=== PATIENT | female | born 1940 | race Caucasian/White ===

== ENCOUNTER 2016-05-01 14:39 | Inpatient (IN) | payer OTHER ==
[~2016-05-01] VITALS: Ht 154.9 cm; Wt 70.9 kg
[2016-05-01 16:32] LABS: RED BLOOD COUNT 4.66 M/UL (4.00-5.10); WHITE BLOOD COUNT 7.3 K/UL (4.5-11.0)
[2016-05-01 16:56] LABS: BUN/CREATININE RATIO 20 (0-10)
[2016-05-02 05:59] LABS: HEMOGLOBIN 14.4 gm/dl (12.3-15.3); RED BLOOD COUNT 4.55 M/UL (4.00-5.10); WHITE BLOOD COUNT 7.1 K/UL (4.5-11.0)
[2016-05-02 06:11] LABS: BUN/CREATININE RATIO 22 (0-10)
[2016-05-03] MEDS ORDERED: IBUPROFEN800 MG PO (09:54)
[2016-05-03] MEDS ORDERED: NEURONTIN 300300 MG PO (09:56)
[2016-05-03] MEDS ORDERED: FLOVENT DISKUS50 MCG INH (09:57)
[2016-05-03] MEDS ORDERED: CLARITIN 10MG T10 MG PO (09:59)
[2016-05-03] MEDS ORDERED: FLONASE 0.05% N16 GM (09:59)
[2016-05-03] MEDS ORDERED: ISOSORBIDE MONO30 MG PO (11:15)
[2016-05-03] MEDS ORDERED: COZAAR100 MG PO (11:15)
[2016-05-03] MEDS ORDERED: HYDROCHLOROTHIA25 MG PO (11:15)
[2016-05-03] MEDS ORDERED: OMEPRAZOLE20 MG PO (11:16)
[2016-05-03] MEDS ORDERED: LIPITOR40 MG PO (17:58)
[2016-05-03] MEDS ORDERED: ASPIR 8181 MG PO (17:58)
[2016-05-03] MEDS ORDERED: LEVAQUIN500 MG PO (17:58)
[2016-05-03] MEDS ORDERED: CLOPIDOGREL75 MG PO (17:59)
[2016-11-26] MEDS ORDERED: VENTOLIN HFA 66.7 GM INH (10:36)
== END 2016-05-03 18:27 | disposition home health service (06) | DRG 65 ==
LOC: ER1 14:39 → MED SURG 4 20:10 → ZEROF 20:10 → MED SURG 4 20:10
PROVIDERS: Family Medicine; ADMIT Internal Medicine
DX: I63.9 Cerebral infarction, unspecified (principal); G81.94 Hemiplegia, unspecified affecting left nondominant side; N30.00 Acute cystitis without hematuria; R29.701 NIHSS score 1; R40.2412 Glasgow coma scale score 13-15, at arrival to emergency department; B96.20 Unspecified Escherichia coli [E. coli] as the cause of diseases classified elsewhere; Z16.11 Resistance to penicillins; I10 Essential (primary) hypertension; E78.5 Hyperlipidemia, unspecified; M50.30 Other cervical disc degeneration, unspecified cervical region; Z86.73 Personal history of transient ischemic attack (TIA), and cerebral infarction without residual deficits; Z88.0 Allergy status to penicillin; Z88.2 Allergy status to sulfonamides; Z90.710 Acquired absence of both cervix and uterus; Z90.49 Acquired absence of other specified parts of digestive tract; Z98.890 Other specified postprocedural states; Z83.3 Family history of diabetes mellitus
CPT/HCPCS: ECHO; 36415; 70450; 70496; 70551; 71010; 72141; 73030; 73080; 73130; 74230; 80053; 80061; 81001; 82550; 82553; 83874; 84484; 85025; 87077; 87086; 87186; 92610; 92611-GN; 93005; 93306; 93880; 97116; 97530; 97535; 99285; G0378; J1650; J7050; Q9963